=== PATIENT | female | born 1985 | race Caucasian/White ===

== ENCOUNTER 2021-03-08 08:29 | Inpatient (IN) ==
[2021-03-08] MEDS ORDERED: Buffered Lidocaine 1% SYRIN 1 ml INTRADERM ONE ×2 (09:03→10:25)
[2021-03-08] MEDS ORDERED: Lactated Ringers 1000 ml BAG 1,000 ML IV ONE (10:25)
[2021-03-08] MEDS ORDERED: Betamethasone 6 mg/ml 5 ml VIAL IM ONE (10:32)
[2021-03-08] MEDS ORDERED: Lactated Ringers 1000 ml BAG 1,000 ML IV SCH ×2 (11:00→17:00)
[2021-03-08] MEDS ORDERED: ceFAZolin 1 GM in Dextrose 1 GM/50 ML BAG IVPB SCH (11:00)
[2021-03-08] MEDS ORDERED: ceFAZolin 2 GM in NS PREMIX 2 GM/100 ML BAG IVPB SCH (11:00)
[2021-03-08 11:21] LABS: ABS Lymphocytes 1.8 10^3/ul (1.0-4.8); ABS Monocytes 1.1 10^3/ul (0-0.8); ABS Neutrophils 12.3 10^3/ul (1.5-7.7); Eosinophil % 0.2 %; Hematocrit 35 % (35-47); Lymphocyte % 12.1 %; Mean Corpuscular HGB Conc 34 g/dL (31-36); Mean Corpuscular Hemoglobin 29 pg (27-31); Mean Corpuscular Volume 86 fL (80-97); Mean Platelet Volume 8.6 fL (7.4-10.4); Platelet Count 296 10^3/uL (150-450); Red Cell Distribution Width 13 % (10-15); White Blood Count 15.3 10^3/uL (3.5-10.8)
[2021-03-08 12:28] LABS: Urine Appearance Clear; Urine Bilirubin Negative (Negative); Urine Blood 2+ (Negative); Urine Color Colorless; Urine Glucose Negative (Negative); Urine Ketones Negative (Negative); Urine Nitrite Negative (Negative); Urine Protein Negative (Negative); Urine Specific Gravity 1.003 (1.002-1.030); Urine Urobilinogen Negative (Negative)
[2021-03-08 12:39] LABS: Urine Bacteria Absent (Absent); Urine Red Blood Cell Trace(0-2/hpf) (Absent); Urine Squamous Epithelial Cell Present (Absent); Urine White Blood Cell Trace(0-5/hpf) (Absent)
[2021-03-08 12:51] LABS: Urine Benzodiazepine Screen None Detected (None Detect); Urine Cannabinoids Screen None Detected (None Detect); Urine Opiates Screen None Detected (None Detect)
[2021-03-08 14:43] LABS: Rapid COVID-19 Molecular Undetected (Undetected)
[2021-03-08] MEDS ORDERED: Oxytocin in LR 20 UNITS/1,000 ML BAG IVPB ONE (15:35)
[2021-03-08] MEDS ORDERED: Glycerin ADULT 2.4 gm SUPP PR PRN (16:32)
[2021-03-08] MEDS ORDERED: Dibucaine 1% OINT 28.35 GM TUBE PR PRN (16:32)
[2021-03-08] MEDS ORDERED: RHO D Immune Globulin (HUMAN) 300 MCG = 1,500 I.U. INJ IM PRN (16:32)
[2021-03-08] MEDS ORDERED: Witch Hazel PAD JAR TOPICAL PRN (16:32)
[2021-03-08] MEDS ORDERED: Oxytocin in LR 20 UNITS/1,000 ML BAG IVPB SCH (17:00)
[2021-03-09 08:35] LABS: Hematocrit 31 % (35-47); Hemoglobin 10.5 g/dL (12.0-16.0); Mean Corpuscular HGB Conc 34 g/dL (31-36); Mean Corpuscular Hemoglobin 29 pg (27-31); Mean Corpuscular Volume 86 fL (80-97); Mean Platelet Volume 8.6 fL (7.4-10.4); Platelet Count 308 10^3/uL (150-450); Red Blood Count 3.57 10^6 /uL (3.70-4.87); Red Cell Distribution Width 13 % (10-15); White Blood Count 24.1 10^3/uL (3.5-10.8)
[2021-03-09 09:28] LABS: ABS Monocytes 1.1 10^3/ul (0-0.8); Lymphocyte % 8.1 %
[2021-03-09] MEDS ORDERED: Betamethasone 6 mg/ml 5 ml VIAL IM ONE (10:30)
[2021-03-10 08:15] VITALS: BP 114/75
== END 2021-03-10 18:45 | disposition home or self-care (01) | DRG 805 ==
LOC: MCHOBOUT 08:29 → MCHOB 09:37
PROVIDERS: ADMIT Obstetrics & Gynecology; ATTEND Midwife

== ENCOUNTER 2022-06-05 07:15 | Inpatient (IN) ==
[2022-06-05] MEDS ORDERED: Lactated Ringers 1000 ml BAG 1,000 ML IV ONE ×2 (07:35→10:08)
[2022-06-05 07:48] LABS: ABS Lymphocytes 2.1 10^3/ul (1.0-4.8); ABS Monocytes 0.5 10^3/ul (0-0.8); ABS Neutrophils 6.5 10^3/ul (1.5-7.7); Hematocrit 40 % (35-47); Hemoglobin 13.2 g/dL (12.0-16.0); Lymphocyte % 22.7 %; Mean Corpuscular HGB Conc 33 g/dL (31-36); Mean Corpuscular Hemoglobin 27 pg (27-31); Mean Corpuscular Volume 81 fL (80-97); Mean Platelet Volume 7.6 fL (7.4-10.4); Platelet Count 233 10^3/uL (150-450); Red Blood Count 4.95 10^6 /uL (3.70-4.87); Red Cell Distribution Width 15 % (10-15); White Blood Count 9.1 10^3/uL (3.5-10.8)
[2022-06-05 07:57] LABS: Activated Partial Thrombo Time 34.7 seconds (26.0-38.0); INR 1.32 (0.88-1.18)
[2022-06-05 08:43] LABS: Albumin 4.3 g/dL (3.2-5.2); Albumin/Globulin Ratio 1.7 (1-3); C Reactive Protein 3.87 mg/L (<8.01); Calcium 8.6 mg/dL (8.6-10.3); Globulin 2.6 g/dL (2-4); Potassium 3.8 mmol/L (3.5-5.0); Total Bilirubin 0.3 mg/dL (0.2-1.0); Total Protein 6.9 g/dL (6.4-8.9)
[2022-06-05 09:27] LABS: High Sensitivity Troponin 1 Hr 30 pg/mL (<15)
[2022-06-05 09:50] LABS: Creatine Kinase 39 U/L (10-223)
[2022-06-05] MEDS ORDERED: Ondansetron 4 mg VIAL 2 MG/ML 2 ml VIAL IV ONE (10:37)
[2022-06-05 11:41] LABS: Body Fluid Source Cerebral Spinal
[2022-06-05 12:31] LABS: Body Fluid Appearance Clear; Body Fluid Color Colorless; CSF Tube # 4
[2022-06-05 12:37] LABS: Body Fluid WBC 128 /mcL
[2022-06-05 12:51] LABS: Body Fluid Mono 28 %; Body Fluid NRBC 20; Body Fluid Total Cells Counted 200
[2022-06-05 13:03] LABS: HIV 4th Generation Nonreactive (Nonreactive)
[2022-06-05] MEDS ORDERED: Vancomycin 1,000 MG in NS 0.9% 250 ml 250 ML IVPB ONE (14:29)
[2022-06-05] MEDS ORDERED: Gadoteridol (CONTRAST) 279.3 MG/ML 10 ML IV ONE (14:58)
[2022-06-05] MEDS ORDERED: Vancomycin per Pharmacy 1 EA NOTE FOLLOW UP SCH (15:00)
[2022-06-05] MEDS: cefTRIAXone 2 gm/50 mL D5W 2 GM/50 ML BAG IV SCH (15:17)
[2022-06-05] MEDS: Lactated Ringers 1000 ml BAG 1,000 ML IV SCH ×2 (15:33→23:35)
[2022-06-05] MEDS ORDERED: methylPREDNISolone SOD SUCC 1000 MG ML VIAL IVPB ONE (16:37)
[2022-06-05] MEDS: ACYCLOVIR IVPB SCH (17:44)
[2022-06-05] MEDS: NS 0.9% IVPB SCH (17:44)
[2022-06-05 17:57] LABS: Vitamin B12 387 pg/mL (180-914)
[2022-06-05] MEDS ORDERED: methylPREDNISolone SOD SUCC 1,000 MG in NS 0.9% 250 ml 250 ML IVPB ONE (18:00)
[2022-06-05] MEDS: Vancomycin 750 MG in NS 0.9% 250 ML IVPB SCH (22:15)
[2022-06-06] MEDS: NS 0.9% IVPB SCH ×3 (00:33→16:42)
[2022-06-06] MEDS: ACYCLOVIR IVPB SCH ×3 (00:33→16:42)
[2022-06-06] MEDS: cefTRIAXone 2 gm/50 mL D5W 2 GM/50 ML BAG IV SCH ×2 (03:47→15:28)
[2022-06-06] MEDS: Vancomycin 750 MG in NS 0.9% 250 ML IVPB SCH (06:01)
[2022-06-06 06:21] LABS: Hematocrit 36 % (35-47); Mean Corpuscular HGB Conc 34 g/dL (31-36); Mean Corpuscular Hemoglobin 27 pg (27-31); Mean Corpuscular Volume 81 fL (80-97); Mean Platelet Volume 8.1 fL (7.4-10.4); Platelet Count 207 10^3/uL (150-450); Red Blood Count 4.45 10^6 /uL (3.70-4.87); Red Cell Distribution Width 15 % (10-15); White Blood Count 5.2 10^3/uL (3.5-10.8)
[2022-06-06 06:36] LABS: Calcium 7.8 mg/dL (8.6-10.3); Potassium 4.1 mmol/L (3.5-5.0)
[2022-06-06 08:17] LABS: ABS Lymphocytes 1.5 10^3/ul (1.0-4.8); ABS Monocytes 0.2 10^3/ul (0-0.8); ABS Neutrophils 3.6 10^3/ul (1.5-7.7); Nucleated Red Blood Cells % 0.2; RBC Morphology Normal (Normal)
[2022-06-06] MEDS: Lactated Ringers 1000 ml BAG 1,000 ML IV SCH (09:11)
[2022-06-06] MEDS: methylPREDNISolone SOD SUCC 1,000 MG in NS 0.9% 1000 ml BAG 1,000 ML IVPB SCH (11:34)
[2022-06-06] MEDS ORDERED: Vancomycin Trough Check NOTE FOLLOW UP ONE (13:30)
[2022-06-06] MEDS ORDERED: Gadoteridol (CONTRAST) 279.3 MG/ML 10 ML IV ONE (20:57)
[2022-06-06 22:51] LABS: HSV 1 PCR, CSF Negative (Negative); HSV 2 PCR, CSF Negative (Negative)
[2022-06-07] MEDS: ACYCLOVIR IVPB SCH ×2 (00:59→07:50)
[2022-06-07] MEDS: NS 0.9% IVPB SCH ×2 (00:59→07:50)
[2022-06-07] MEDS: cefTRIAXone 2 gm/50 mL D5W 2 GM/50 ML BAG IV SCH (04:45)
[2022-06-07 06:31] LABS: ABS Lymphocytes 1.8 10^3/ul (1.0-4.8); ABS Monocytes 0.5 10^3/ul (0-0.8); ABS Neutrophils 13.8 10^3/ul (1.5-7.7); Hematocrit 33 % (35-47); Hemoglobin 11.2 g/dL (12.0-16.0); Lymphocyte % 10.9 %; Mean Corpuscular HGB Conc 34 g/dL (31-36); Mean Corpuscular Hemoglobin 27 pg (27-31); Mean Corpuscular Volume 81 fL (80-97); Mean Platelet Volume 7.8 fL (7.4-10.4); Nucleated Red Blood Cells % 0.2; Platelet Count 231 10^3/uL (150-450); Red Blood Count 4.13 10^6 /uL (3.70-4.87); Red Cell Distribution Width 15 % (10-15); White Blood Count 16.1 10^3/uL (3.5-10.8)
[2022-06-07 07:17] LABS: Albumin 3.4 g/dL (3.2-5.2); Albumin/Globulin Ratio 1.5 (1-3); Calcium 7.7 mg/dL (8.6-10.3); Globulin 2.2 g/dL (2-4); Potassium 3.8 mmol/L (3.5-5.0); Total Bilirubin 0.2 mg/dL (0.2-1.0); Total Protein 5.6 g/dL (6.4-8.9); eGFR CKD-EPI 124.2 (>60)
[2022-06-07 10:23] LABS: Vitamin D Total 25(OH) 24.1 ng/mL (20-50)
[2022-06-07] MEDS: methylPREDNISolone SOD SUCC 1,000 MG in NS 0.9% 1000 ml BAG 1,000 ML IVPB SCH (11:30)
[2022-06-07 14:56] LABS: Cytomegalovirus IgG Antibody Positive (Negative); EBV Capsid Ag IgG Ab Positive (Negative); EBV Capsid Ag IgM Ab Negative (Negative); Epstein-Barr Nuclear Antigen Positive (Negative)
[2022-06-07] MEDS ORDERED: methylPREDNISolone SOD SUCC 1,000 MG in NS 0.9% 1000 ml BAG 1,000 ML IVPB SCH (15:36)
[2022-06-07 15:45] VITALS: BP 120/78
[2022-06-07 16:14] LABS: TSH Ultra Thyroid Stim Horm 0.82 mcIU/mL (0.34-5.60)
[2022-06-08] MEDS ORDERED: Cholecalciferol (VIT D3) 1,000 unit TAB PO SCH (09:00)
[2022-06-08] MEDS ORDERED: cefTRIAXone 2 gm/50 mL D5W 2 GM/50 ML BAG IV SCH (09:00)
[2022-06-08 15:16] LABS: B. burgdorferi PCR Negative (Negative); B. garinii/B. afzellii PCR Negative (Negative); Lyme Disease Source CSF
[2022-06-10 15:07] LABS: IgG Immunoblot Negative (Negative); IgM Immunoblot Negative (Negative)
[2022-06-10 15:17] LABS: CSF Oligoclonal Bands 4 bands; Oligoclonal Proteins Interpret 0 bands (<2); Serum Oligoclonal Bands 4 bands
[2022-06-11 01:57] LABS: NMO/AQP4 IgG Negative (Negative)
[2022-06-12 19:39] LABS: Enterovirus Source CSF
[2022-06-13 18:13] LABS: AGNA-1, CSF Negative titer (<1:2); ANNA-1, CSF Negative titer (<1:2); ANNA-2, CSF Negative titer (<1:2); ANNA-3, CSF Negative titer (<1:2); Amphiphysin Ab, CSF Negative titer (<1:2); CRMP-5-IgG, CSF Negative titer (<1:2); PCA-1, CSF Negative titer (<1:2); PCA-2, CSF Negative titer (<1:2); PCA-Tr, CSF Negative titer (<1:2)
== END 2022-06-07 18:36 | disposition home or self-care (01) | DRG 98 ==
LOC: ED 07:15 → EDHOLD 15:52 → MEDTELE 21:12
PROVIDERS: ADMIT Hospitalist; ATTEND Hospitalist

== ENCOUNTER 2023-06-29 19:07 | Inpatient (IN) ==
[2023-06-29] MEDS ORDERED: Buffered Lidocaine 1% SYRIN 1 ml INTRADERM ONE (19:51)
[2023-06-29] MEDS ORDERED: Lactated Ringers 1000 ml BAG 1,000 ML IV ONE (19:51)
[2023-06-29] MEDS ORDERED: Lidocaine 1% VIAL 10 MG/ML 30 ML VIAL INJ PRN (19:51)
[2023-06-29] MEDS ORDERED: Lactated Ringers 1000 ml BAG 1,000 ML IV SCH (20:00)
[2023-06-29 21:58] LABS: ABS Lymphocytes 3.1 10^3/uL (1.0-4.8); ABS Monocytes 0.8 10^3/uL (0.0-0.9); ABS Neutrophils 8.4 10^3/uL (1.5-7.6); Eosinophil % 0.4 %; Hematocrit 36.3 % (35-45); Hemoglobin 11.5 g/dL (11.5-14.3); Lymphocyte % 25.1 %; Mean Corpuscular Hemoglobin 24.8 pg (27-33); Mean Corpuscular Hgb Conc 31.6 g/dL (31-36); Mean Corpuscular Volume 78.7 fL (80-97); Mean Platelet Volume 8.4 fL (7.5-11.2); Platelet Count 308 10^3/uL (150-450); Red Blood Count 4.61 10^6/uL (3.63-4.92); Red Cell Distribution Width 17.9 % (12-17); White Blood Count 12.4 10^3/uL (3.8-11.8)
[2023-06-29] MEDS ORDERED: OBEPIDURAL (200 ML) 200 ML EPIDURAL ONE (23:34)
[2023-06-29 23:35] LABS: Urine Benzodiazepine Screen None Detected (None Detect); Urine Opiates Screen None Detected (None Detect)
[2023-06-29] MEDS ORDERED: Lidocaine 1% w EPI 1:200,000 SDV 10 ML VIAL ONE (23:47)
[2023-06-30] MEDS ORDERED: Famotidine IV 10 MG/ML 2 ml VIAL (20 mg) IV PRN (00:22)
[2023-06-30] MEDS ORDERED: Phenylephrine 40 mcg/mL 10mL (400mcg) SYRINGE IV PUSH PRN ×2 (00:22)
[2023-06-30] MEDS ORDERED: Lactated Ringers 1000 ml BAG 1,000 ML IV ONE (00:22)
[2023-06-30] MEDS ORDERED: Lactated Ringers 1000 ml BAG 500 ML IV PRN ×2 (00:22)
[2023-06-30] MEDS ORDERED: Sodium Citrate/Citric Acid LIQ 15 ML UDC PO PRN (00:22)
[2023-06-30] MEDS ORDERED: OBEPIDURAL (200 ML) 200 ML EPIDURAL SCH (01:00)
[2023-06-30] MEDS ORDERED: Lactated Ringers 1000 ml BAG 1,000 ML IV SCH ×2 (01:00→03:00)
[2023-06-30] MEDS ORDERED: Oxytocin 10 UNITS/ML 1 ML VIAL IM PRN (02:23)
[2023-06-30] MEDS: Witch Hazel PAD JAR TOPICAL PRN (03:23)
[2023-06-30] MEDS: Dibucaine 1% OINT 28.35 GM TUBE PR PRN (03:23)
[2023-07-01 07:02] LABS: ABS Basophils 0.1 10^3/uL (0.0-0.1); ABS Eosinophils 0.2 10^3/uL (0.0-0.5); ABS Lymphocytes 2.9 10^3/uL (1.0-4.8); ABS Monocytes 0.9 10^3/uL (0.0-0.9); ABS Neutrophils 7.6 10^3/uL (1.5-7.6); Hematocrit 25.6 % (35-45); Hemoglobin 8.4 g/dL (11.5-14.3); Lymphocyte % 24.4 %; Mean Corpuscular Hemoglobin 25.3 pg (27-33); Mean Corpuscular Hgb Conc 32.9 g/dL (31-36); Mean Corpuscular Volume 76.8 fL (80-97); Mean Platelet Volume 8.2 fL (7.5-11.2); Platelet Count 241 10^3/uL (150-450); Red Blood Count 3.34 10^6/uL (3.63-4.92); Red Cell Distribution Width 17.7 % (12-17); White Blood Count 11.7 10^3/uL (3.8-11.8)
[2023-07-01 08:48] VITALS: BP 101/68
[2023-07-01] MEDS: Witch Hazel PAD JAR TOPICAL PRN (09:37)
[2023-07-01] MEDS: Dibucaine 1% OINT 28.35 GM TUBE PR PRN (09:37)
== END 2023-07-01 14:23 | disposition home or self-care (01) | DRG 807 ==
LOC: MCHOBOUT 19:07 → MCHOB 19:47
PROVIDERS: ADMIT Registered Nurse; ATTEND Registered Nurse